=== PATIENT | female | born 1955 | race Caucasian/White ===

== ENCOUNTER 2018-10-20 10:06 | Day surgery (SDC) | payer BC ==
--- NOTE | 2018-10-20 05:57 | EKG ---
Test Date: 2018-10-19 Test Time: 13:11:42 Butcher'S Assistant: DANIEL MEASUREMENT RESULTS: Intervals: Rate: 65 AR: 152 QRSD: 80 QT: 410 QTc: 426 [place]: P: 29 AR: 152 QRS: 0 T: 22 INTERPRETIVE STATEMENTS: Normal sinus rhythm Normal ECG No previous ECG available for comparison Electronically Signed On 10-20-18 05:56:20 CDT by Bobo Jones
--- OUTSIDE RECORDS SUMMARY | 2018-10-20 10:10 | XMS REPORT ---
:1955 [facility] Address [address] [place] [address] Dr. Brian [address] [place] [id number] Care Team Providers Name Role Phone Unavailable Unavailable Unavailable Payers Payer Name Policy Type Policy Number Effective Date Expiration Date Problems This patient has no known problems. Allergies, Adverse Reactions, Alerts This patient has no known allergies or adverse reactions. Medications This patient has no known medications.
--- OUTSIDE RECORDS SUMMARY | 2018-10-20 10:10 | XMS REPORT | Continuity of Care Document ---
:1955 Author Organization Interface Problems Problem Status Onset Date Classification Date Comments Source Reported Medications Medication Details Route Status Patient Ordering Order Source Instructions Provider Date Allergies, Adverse Reactions, Alerts Substance Category Reaction Severity Reaction Status Date Comments Source type Reported Immunizations Immunization Date Given Site Status Last Updated Comments Source Results Order Results Value Reference Date Interpretation Comments Source Name Range Vital Signs Vital Sign Value Date Comments Source Encounters Location Location Encounter Encounter Reason Attending ADM DC Status Source Details Type Number For Provider Date Date Visit Outpatient [id number] DEBBIE 12/28 [facility] [place] Outpatient [id number] DEBBIE 01/20 [facility] [place] Procedures Procedure Code Date Perfomer Comments Source
[2018-10-20] MEDS ORDERED: Ringers Lactate 1,000 ML IV ONE (10:33)
[2018-10-20] MEDS: OXYMETAZOLINE HCL 0.05% 15ML NAS ONE ×2 (10:35→10:40)
[2018-10-20] MEDS ORDERED: DIAZEPAM 5 MG TABLET ONE (10:38)
[2018-10-20] MEDS ORDERED: SCOPOLAMINE HYDROBROMIDE PATCH TD ONE (10:38)
[2018-10-20] MEDS ORDERED: OXYMETAZOLINE HCL 0.05% 15ML NAS ONE (10:52)
[2018-10-20] MEDS ORDERED: EPINEPHRINE/PF 1 MG/ML AMP ONE (10:53)
[2018-10-20] MEDS ORDERED: NA CHLORIDE 0.9% 500 ML ONE (10:53)
[2018-10-20] MEDS ORDERED: LIDOCAINE 1% W/EPI 1:100,000 MDV 50 ML VIAL ONE (10:53)
[2018-10-20] MEDS ORDERED: ROCURONIUM 50 MG/5 ML VIAL IV ONE (11:10)
[2018-10-20] MEDS ORDERED: PROPOFOL 200 MG/20 ML VIAL IV ONE (11:10)
[2018-10-20] MEDS ORDERED: LIDOCAINE 2% MPF 5 ML VIAL ONE (11:10)
[2018-10-20] MEDS ORDERED: FENTANYL CITR 100 MCG/2 ML ONE ×2 (11:10→12:12)
[2018-10-20] MEDS ORDERED: MIDAZOLAM HCL 2 MG/2 ML INJ ONE (11:10)
[2018-10-20] MEDS ORDERED: DEXAMETHASONE 10 MG/ML VIAL ONE (11:10)
[2018-10-20] MEDS ORDERED: LABETALOL 20 MG/4ML SYRINGE IV ONE (12:27)
[2018-10-20] MEDS: HYDROMORPHONE HCL 1 MG/ML INJ ONE ×2 (13:36→13:41)
[2018-10-20] MEDS ORDERED: HYDROCODONE/APAP 5/325 MG TAB ONE (14:35)
[2018-10-20] MEDS ORDERED: ONDANSETRON 4 MG/2 ML VIAL ONE (14:46)
--- NOTE | 2018-10-21 00:05 | OP ---
Date of Procedure: 10/20/2018 Surgeon: Brielle Duff MD Preoperative Diagnosis: Right chronic sphenoid sinusitis and headache. Postoperative Diagnoses: Right chronic sphenoid sinusitis and headache. Procedure: Nasal endoscopy with sphenoid sinusotomy and placement of steroid- eluting stent. Indication For Procedure: Ms. Moran presented with left unilateral hearing loss and underwent a CT temporal bone for further evaluation. She was noted to have a chronic right sphenoid sinusitis with complete opacification of the sphenoid and significant thickening of the bony schilling of the sphenoid, consistent with chronic infection. She has a history of migraine and chronic headache and there was uncertain degree of impact from the sphenoid sinusitis on her headache. The risks, benefits, and alternatives to the procedure were discussed with the patient including failure to resolve, headache, and she desired to proceed. The patient had multiple antibiotic allergies including allergy to penicillin, fluoroquinolones, clindamycin and given multiple antibiotic allergies, the decision was made to proceed with sphenoidotomy given the degree of inflammatory changes of the bone. Description Of Procedure: The patient was brought to the operating room. She was placed under general anesthesia via oral endotracheal tube. The head of bed was turned 90 degrees. The patient's nasal hairs were trimmed. The nasal cavity was packed with Afrin-soaked pledgets. After time for effect, these were removed. The 0-degree endoscope was used to perform a nasal endoscopy. The right middle turbinate was carefully lateralize in order to view the sphenoethmoid recess. The bony ostium was dilated using the balloon, but the mucosal portion of the sphenoid lining was not punctured by the balloon. It was noted to be very thickened and much tougher than the usual sinus mucosa. A sickle knife was used to incise the mucosa and a combination of instruments including a straight curette, maxillary seeker, microdebrider, sphenoid punch, and straight Blakesley were used to remove a portion of the mucosa in order to open the sinus cavity proper. The sphenoid sinus was then forcefully irrigated with multiple aliquots of sterile saline. A total of approximately 350 mL were used. The sinus was irrigated using a straight suction, a curved suction, and the Cyclone assistant golf course superintendent until the irrigation ran clear and the patient's sinus when visualized with the 0 and 30-degree endoscope appeared clear from any further secretions. The decision was made to then place a Propel Contour steroid-eluting stent at the sphenoid os in order to prevent restenosis and provide direct steroid application to the swollen and inflamed lining. Due to the patient's multiple antibiotic allergies, no oral antibiotics will be prescribed postoperatively despite intraoperative findings. The patient was then returned to care of Anesthesia for awakening and extubation in the operating room, which proceeded without difficulty. Complications: None. Specimens: None. The patient will follow up with Dr. Duff in 1 to 2 weeks for evaluation of healing. DANY Voice ID: [id number] Report ID: [id number] MTDD
--- NOTE | 2018-10-22 00:48 | OP ---
Date of Procedure: 10/20/2018 Surgeon: Brielle Duff MD Postoperative Diagnosis: Right chronic sphenoid sinusitis. Postoperative Diagnosis: Right chronic sphenoid sinusitis. Procedure: Nasal endoscopy with right frontal sinusotomy. Indication For Procedure: Ms. Moran is a 62-year-old with a history of severe migraine and chronic daily headache. [facility] for left asymmetric sensorineural hearing loss. Du ring evaluation for hearing loss, she underwent a CT scan of the temporal bone, which demonstrated si gnificant right sphenoid sinusitis with complete opacification of the sinus and significant thickenin g of the bony schilling of the sphenoid indicating chronic inflammation. The patient has significant china g allergies including allergies to nonsteroidal anti-inflammatories, penicillins or quinolones, and c lindamycin. Due to history of severity of reaction to multiple antibiotics and otherwise normal sinu ses aside from the sphenoid, the problem was felt to be more of an anatomic blockage and inflammatory issue rather than a true infectious issue. Decision to forego prolonged steroid or prolonged antibi otic treatment prior to surgery was made on the basis of multiple antibiotic allergies as well as the lack of active drainage from the sphenoid in regard to obtaining a culture, which would direct the t herapy. The risks, benefits, and alternatives to the procedure were discussed with the patient, who agreed to proceed. Description Of Procedure: The patient was brought to the operating room. She was placed under gener al anesthesia via oral endotracheal tube. The head of bed was turned 90 degrees. The nasal hairs we re trimmed and the right nasal cavity was packed with Afrin-soaked pledgets. After time for effect, the pledgets were removed and the patient's right nasal cavity was examined using 0-degree endoscope. The septum was approximately midline. The inferior and middle turbinates were unremarkable with no evidence of infection within the middle meatus. The sphenoethmoid recess was visualized and the mid dle turbinate was carefully lateralized using a [place] for better visualization. The superior turbina te was visualized and the area of the sphenoid os was well visualized. There was no evidence of poly ps within the sphenoethmoid recess. There was no evidence of purulence draining from the sinus. An Entellus balloon dilator was placed under endoscopic guidance into the sphenoid ethmoid recess and wa s placed within the sphenoid os and used to dilate the sphenoid ostium. After dilation and removal, this area was carefully inspected. The bony ostium appeared dilated, however, the mucosa of the sinu s was very thickened and was not penetrated by the balloon, likely due to scarring of the mucosal asp ect of the ostium. The 0 degree camera and straight suction were used to carefully palpate this area . The mucosa was so thickened, that it appeared almost like a cyst-like structure where the mucosa w ould peel away from the bone. The mucosa was finally lacerated using a sickle knife to cut into the mucosa. Once this area was entered, a moderate amount of thick mucopurulent secretions were noted an d were suctioned from the sphenoid sinus. The maxillary seeker and straight curette were then used t o further widen the mucosal opening. A straight Blakesley was used in attempt to remove a bit of the mucosa in order to create an opening, but this was difficult to pass through the ostium. A sphenoid punch and microdebrider were then used to enlarge the bony ostium and create better access into the sinus. After creation of the larger bony ostium, a suction catheter straight and curved were used to forcefully irrigate multiple aliquots of sterile saline into this sinus and thick chunks of purulent debris were irrigated and suctioned from the sinus and nasal cavity. The endoscope was then passed through the ostium to visualize the mucosa. There was persistent thin sheets of white material withi n the sinus and adherent to the mucosal surface. The Cyclone suction porcelain enamel sprayer was then used to forc efully irrigate the sinus cavity. After multiple irrigations with approximately 100 mL of sterile sa line, these were significantly lessened, though the lining of the sinus remained very thickened and i nflamed appearing. A Propel steroid eluting stent was placed under endoscopic guidance into the sphe noid ostium in order to provide mechanical action as well as local drug delivery to improve the overa ll degree of inflammation and prevent re-stenosis of the sphenoid ostium. The nasopharynx and nasal cavity were suctioned and the patient was returned to care of Anesthesia for awakening and extubation in the operating room, which proceeded without difficulty. Despite intraoperative findings of purul ence within the right sphenoid sinus due to the patient's multiple antibiotic allergies, decision was made to forego systemic administration of antibiotics with plan to follow regarding her postoperativ e course with regard to infectious issues. Disposition: The patient will be discharged home later today and follow up with Dr. Duff in 1 to 2 weeks for initial postoperative visit and possible debridement. YULISA/GORDON Voice ID: [id number] Report ID: [id number]
== END 2018-10-20 15:20 | disposition home or self-care (01) ==
LOC: OR 10:06
PROVIDERS: ATTEND Otolaryngology
PROC: 09QW8ZZ Repair Right Sphenoid Sinus, Via Natural or Artificial Opening Endoscopic (ICD-10-PCS; principal; 2018-10-20 11:00)
DX: J32.3 Chronic sphenoidal sinusitis (principal); I10 Essential (primary) hypertension; M19.90 Unspecified osteoarthritis, unspecified site; F41.9 Anxiety disorder, unspecified; F32.9 Major depressive disorder, single episode, unspecified; Z79.899 Other long term (current) drug therapy
CPT/HCPCS: 93005; J0171; J1100; J1170; J2250; J2405; J2704; J3010